=== PATIENT | male | born 1955 | race African-American/Black ===

== ENCOUNTER 2020-05-04 17:50 | Inpatient (IN) | payer BC, OTHER ==
[~2020-05-04] VITALS: Ht 188 cm; Wt 90.7 kg
[2020-05-04 18:00] VITALS: Ht 188 cm; Wt 90.7 kg
[2020-05-04 18:26] LABS: BASOPHIL % 0.2 % (0-2); PLATELET COUNT 182 x10^3mcL (130-400); RED CELL DISTRIBUTION WIDTH 13.9 % (11.5-14.5)
[2020-05-04 18:35] LABS: CALCIUM 8.7 mg/dL (8.5-10.1); CARBON DIOXIDE 28.3 mmol/L (21-32); CREATININE SERUM 1.7 mg/dL (0.7-1.3); POTASSIUM SERUM 4.7 mmol/L (3.5-5.1)
[2020-05-04 18:41] LABS: ALBUMIN 3.7 g/dL (3.4-5.0); BILIRUBIN TOTAL 0.3 mg/dL (0.20-1.00); TOTAL PROTEIN, SERUM 7.2 g/dL (6.4-8.2)
[2020-05-04 21:04] LABS: FREE T4 1.11 ng/dL (0.76-1.46); FREE THYROXINE INDEX 2.1 ug/dL (1.4-4.5); T4(THYROXINE) 5.6 ug/dL (4.7-13.3)
[2020-05-04 21:05] LABS: T3 TOTAL 0.68 ng/mL
[2020-05-04 21:16] LABS: CHOLESTEROL/HDL RATIO 3.1
[2020-05-04 23:15] VITALS: BP 117/67
[2020-05-05 05:35] VITALS: BP 116/70
[2020-05-05 09:26] VITALS: BP 116/62
[2020-05-05 13:38] LABS: microscopic required? NO
[2020-05-05 13:50] VITALS: BP 109/74
[2020-05-05 13:54] LABS: UA SPECIFIC GRAVITY >=1.030 (1.005-1.035); urine erythrocyte NEGATIVE (NEGATIVE)
[2020-05-05 18:26] VITALS: BP 115/65
[2020-05-05 20:53] VITALS: BP 115/62
[2020-05-06 05:25] VITALS: BP 126/71
[2020-05-06 08:31] LABS: CALCIUM 7.9 mg/dL (8.5-10.1); CHLORIDE SERUM 107 mmol/L (98-107); CREATININE SERUM 1.1 mg/dL (0.7-1.3); GFR1 > 60 mL/min; GLUCOSE SERUM 85 mg/dL (74-106); MAGNESIUM 2.1 mg/dL (1.8-2.4); PHOSPHOROUS 3.1 mg/dL (2.5-4.9); POTASSIUM SERUM 3.9 mmol/L (3.5-5.1); SODIUM SERUM 140 mmol/L (136-145)
[2020-05-06 08:34] VITALS: BP 118/61
[2020-05-06 08:48] LABS: BASOPHIL % 0.7 % (0-2); PLATELET COUNT 162 x10^3mcL (130-400); RED CELL DISTRIBUTION WIDTH 14.4 % (11.5-14.5)
[2020-05-06 11:32] VITALS: BP 118/61
[2020-05-06 12:26] VITALS: BP 142/75
== END 2020-05-06 13:25 | disposition home or self-care (01) | DRG 74 ==
LOC: ED 17:50 → DU 20:11 → MU 20:11 → DU 21:47 → MU 05-05 15:20
PROVIDERS: Emergency Medicine; ADMIT Internal Medicine; ATTEND Internal Medicine
DX: G90.8 Other disorders of autonomic nervous system (principal); N17.9 Acute kidney failure, unspecified; E11.9 Type 2 diabetes mellitus without complications; E86.0 Dehydration; D72.829 Elevated white blood cell count, unspecified
CPT/HCPCS: 82962; 83880; 84439; G0378; J7030